=== PATIENT | female | born 1985 | race African-American/Black ===

== ENCOUNTER 2021-10-14 14:45 | Emergency (ER) | payer MEDICAID ==
[~2021-10-14] VITALS: Ht 175.3 cm; Wt 79.5 kg
[2021-10-14 15:30] VITALS: BP 130/82
--- NOTE | 2021-10-14 16:09 | PHYS DOC ---
Past Medical History Past Medical History: No Pertinent History Past Surgical History: No Surgical History, Smoking Status: Never Smoker Alcohol Use: None General Adult EDM: Chief Complaint: FLU SYMPTOM HPI: HPI: Patient is a 35-year-old female who presents today with fever, cough, and body aches. Patient states that she has had on and off symptoms for about 7 days. Patient states that she had symptoms approximately 7 days ago and then 2 to 3 d ays after that she started feeling better and then approximately 2 days ago she started feeling worse with fever, cough, and body aches. She states that her temperature last night was as high as 102.1, she has been taken Tylenol and ibuprofen as needed for pain but continues to have cough and body aches. Patient states that she took a COVID test last and it was negative but she continues to have symptoms. Patient states she did have her COVID and vaccines but has not had her influenza vaccines. Review of Systems: Review of Systems: Constitutional: Fever Eyes: Denies change in visual acuity. [] HENT: Denies nasal congestion or sore throat. [] Respiratory: Cough denies shortness of breath Cardiovascular: Denies chest pain or edema. [] GI: Denies abdominal pain, nausea, vomiting, bloody stools or diarrhea. [] : Denies dysuria. [] Musculoskeletal: Body aches denies back pain or joint pain. [] Integument: Denies rash. [] Neurologic: Denies headache, focal weakness or sensory changes. [] Endocrine: Denies polyuria or polydipsia. [] Lymphatic: Denies swollen glands. [] Psychiatric: Denies depression or anxiety. [] Heart Score: C/O Chest Pain: No Risk Factors: Risk Factors: DM, Current or recent (<one month) smoker, HTN, HLP, family history of CAD, obesity. Risk Scores: Score 0 - 3: 2.5% MACE over next 6 weeks - Discharge Home Score 4 - 6: 20.3% MACE over next 6 weeks - Admit for Clinical Observation Score 7 - 10: 72.7% MACE over next 6 weeks - Early Invasive Strategies Current Medications: Current Medications Medications (Trade) Dose Ordered Sig/Nahum Start Time Stop Time Status Last Admin Dose Admin Ketorolac Tromethamine (Toradol Im) 60 mg 1X ONCE 10/14/21 16:00 10/14/21 16:01 UNV Allergies: Allergies: Allergies Coded Allergies Type Severity Reaction Last Updated Verified No Known Drug Allergies 10/14/21 No Physical Exam: PE: Constitutional: Well developed, well nourished, mild distress, non-toxic appearance. [] HENT: Normocephalic, atraumatic, bilateral external ears normal, oropharynx moist, no oral exudates noted but oropharynx is reddened, nose normal. [] Eyes: PERRLA, EOMI, conjunctiva normal, no discharge. [] Neck: Normal range of motion, no tenderness, supple, no stridor. [] Cardiovascular:Heart rate regular rhythm, no murmur [] Lungs & Thorax: Bilateral breath sounds clear to auscultation, cough noted, no accessory muscle use or shortness of breath noted Abdomen: Bowel sounds normal, soft, no tenderness, no masses, no pulsatile masses. [] Skin: Warm, dry, no erythema, no rash. [] Back: No tenderness, no CVA tenderness. [] Extremities: No tenderness, no cyanosis, no clubbing, ROM intact, no edema. [] Neurologic: Alert and oriented X 3, normal motor function, normal sensory function, no focal deficits noted. [] Psychologic: Affect normal, judgement normal, mood normal. [] Current Patient Data: Labs: Laboratory Tests Test 10/14/21 15:37 10/14/21 16:10 Influenza Type A Antigen Negative Influenza Type B Antigen Negative SARS-CoV-2 Antigen (Rapid) Negative Bedside Urine HCG, Qualitative Hcg negative Current Medications Medications (Trade) Dose Ordered Sig/Nahum Route PRN Reason Start Time Stop Time Status Last Admin Dose Admin Ketorolac Tromethamine (Toradol Im) 60 mg 1X ONCE IM 10/14/21 16:30 10/14/21 16:31 DC 10/14/21 16:23 Benzonatate (Tessalon Perle) 100 mg 1X ONCE PO 10/14/21 16:15 10/14/21 16:16 DC 10/14/21 16:21 Vital Signs: Vital Signs Date Time Temp Pulse Resp B/P (MAP) Pulse Ox O2 Delivery O2 Flow Rate FiO2 10/14/21 15:30 98.5 85 18 130/82 (98) 99 Room Air 98.5 Vital Signs Date Time Temp Pulse Resp B/P (MAP) Pulse Ox O2 Delivery O2 Flow Rate FiO2 10/14/21 15:30 98.5 85 18 130/82 (98) 99 Room Air 98.5 EKG: EKG: [] Radiology/Procedures: Radiology/Procedures: REASON: cough PROCEDURE: CHEST PA & LATERAL Chest, PA and Lateral: Technique: PA and lateral views of the chest were obtained. History: Cough. Comparison: None. Findings: The heart and pulmonary vasculature appear within normal limits. The lungs are clear. The pleural margins are clear. Impression: No acute chest process is seen. Electronically signed by: Sebastian Galan MD (10/14/2021 4:44 PM) [id number] [] Course & Med Decision Making: Course & Med Decision Making Pertinent Labs and Imaging studies reviewed. (See chart for details) 1720 I reviewed radiological and laboratory results with patient and did inform her that they were negative for influenza and COVID and her chest x-ray was not showing any acute processes such as pneumonia at this time. Patient states her cough is still there but it has improved somewhat, her pain has improved with t he IM Toradol and her nausea has improved with the Zofran. a prescription for Zofran and Tessalon Perles will be sent to her pharmacy, patient is advised to increase by mouth fluids to start a Claritin or Zyrtec [id number] to help with antihistamine properties as well as Flonase nasal spray. Patient may take [id number]-dyiajjo Benadryl at night to help her rest, cool-mist humidifier to help with coughing as well as cough suppressant drops. Patient is to return here to the emergency department or follow-up with her primary care physician in 3 to 5 days if her symptoms have not improved. Patient verbalizes understanding of this and agreeable with plan of care. Dragon Disclaimer: Ermelinda Disclaimer: This electronic medical record was generated, in whole or in part, using a voice recognition dictation system. Departure Departure Impression: Primary Impression: Viral syndrome Additional Impression: Cough in adult Disposition: 01 HOME / SELF CARE / HOMELESS Condition: STABLE Patient Instructions: Cough, Adult, Viral Syndrome Additional Instructions: Tessalon Perles 1 tablet every 8 hours as needed for cough Zofran 1 tablet every 6-8 hours as needed for nausea Cool-mist humidifier to help with cough symptoms Claritin or Zyrtec 1 tablet daily for antihistamine properties Flonase nasal spray [id number] 2 sprays each side of the nose twice daily [id number]-ath-hbcrzva Benadryl at night to help with sleep and coughing Cough drops as needed for cough and throat pain Follow-up with your primary care physician or one of the listed clinics below for further evaluation and management in 5 to 7 days if you are no better Return here to the emergency department should you have increased chest pain, inability to take any by mouth fluids due to nausea and vomiting, or increased shortness of breath. [facility] [address] [place] [address] [facility] [address] [place] [address] [facility] [address] [facility] [place] [address] [facility] [address] [place] [address] [facility] [address] [place] [address] [facility] [address] [place] [address] [facility] [address] [place] [address] [facility] [address] [place] [address] [facility] [address] [place] [address] [facility] [address] [place] [address] [facility] Ondansetron (ONDANSETRON ODT) 4 Mg Tab.rapdis 1 TAB PO PRN Q6-8HRS, #16 TAB Prov: MICHELLE TREJO DRUG ABUSE TREATMENT SPECIALIST 10/14/21 Benzonatate (BENZONATATE) 100 Mg Capsule 1 CAP PO TID PRN PRN for COUGH, #30 CAP Prov: MICHELLE TREJO DRUG ABUSE TREATMENT SPECIALIST 10/14/21 MICHELLE TREJO DRUG ABUSE TREATMENT SPECIALIST October 14, 2021 16:09
[2021-10-14] MEDS ORDERED: BENZONATATE 100 MG CAPSULE. PO ONE (16:15)
[2021-10-14 16:21] LABS: INFLUENZA A PATIENT NEGATIVE (NEGATIVE); INFLUENZA B PATIENT NEGATIVE (NEGATIVE)
[2021-10-14] MEDS ORDERED: KETOROLAC 60 MG/2 ML VIAL. IM ONE (16:30)
--- NOTE | 2021-10-14 16:46 | RAD ---
Chest, PA and Lateral: Technique: PA and lateral views of the chest were obtained. History: Cough. Comparison: None. Findings: The heart and pulmonary vasculature appear within normal limits. The lungs are clear. The pleural ma rgins are clear. Impression: No acute chest process is seen. Electronically signed by: Sebastian Galan MD (10/14/2021 4:44 PM) [id number]
[2021-10-14] MEDS ORDERED: BENZ-8 PO (17:28)
[2021-10-14] MEDS ORDERED: ONDA4TAB12 PO (17:28)
[2021-10-14] MEDS ORDERED: ONDANSETRON ODT 4 MG TAB.RAPDIS. PO ONE (17:30)
== END 2021-10-14 17:33 | disposition home or self-care (01) ==
LOC: ER 14:45
DX: B34.9 Viral infection, unspecified (principal); Z20.822 Contact with and (suspected) exposure to COVID-19
CPT/HCPCS: 71046; 81025; 87428; 96372; 99284; J1885